=== PATIENT | male | born 1975 ===

== ENCOUNTER 2018-03-11 11:05 | Day surgery (SDC) | payer MEDICAID ==
[2018-03-06 06:47] VITALS: BMI 31.8
[2018-03-11 11:25] LABS: BASO # 0.03 K/mm3 (0.0-2.0); BASO % 0.6 % (0.0-3.0); EOS # 0.1 (0.0-0.7); EOS % 2.1 % (1.5-5.0); GRAN # 3.01 (1.4-6.5); GRAN % 56.9 % (50.0-68.0); HEMOGLOBIN 16.1 g/dL (14.0-18.0); LYMPH # 1.8 (1.2-3.4); LYMPH % 34.2 % (22.0-35.0); MEAN CELL VOLUME 81.1 fl (80.0-105.0); MEAN CORPUSCULAR HEMOGLOBIN 29.3 pg (25.0-35.0); MEAN CORPUSCULAR HGB CONC 36.1 g/dl (31.0-37.0); MONO # 0.3 (0.1-0.6); MONO % 6.2 % (1.0-6.0); RBC 5.5 10^6/uL (3.5-6.1); RED CELL DISTRIBUTION WIDTH 13.2 % (11.5-14.5); WHITE BLOOD COUNT 5.3 10^3/ul (4.5-11.0)
[2018-03-11 11:34] LABS: BLOOD UREA NITROGEN 13 mg/dL (7-21); GFR AFRICAN-AMERICAN > 60; GFR NON-AFRICAN AMERICAN > 60
[2018-03-11 11:35] LABS: INR 1.08 (0.93-1.08); PARTIAL THROMBOPLASTIN TIME 29.7 Seconds (25.1-36.5); PROTHROMBIN TIME 12.4 SECONDS (9.4-12.5)
[2018-03-11] MEDS ORDERED: Midazolam 2 MG/2 ML VIAL ONE (15:48)
[2018-03-11] MEDS ORDERED: Lidocaine 1% Inj (20ml) ONE (16:50)
[2018-03-11] MEDS ORDERED: Oxycodone/Acetaminophen 5/325 mg Tab PO PRN (17:02)
[2018-03-11] MEDS ORDERED: Sodium Chloride 0.45% 1,000 ML IV SCH (17:15)
[2018-03-11 18:02] VITALS: RESP 18; TEMP 98.3; O2SAT 94
[2018-03-11 18:19] VITALS: BP 123/84; PULSE 81
--- NOTE | 2018-03-11 19:28 | US ---
PROCEDURE: Ultrasound-guided right thyroid fine needle aspiration biopsy. CLINICAL HISTORY: Previous left thyroidectomy for goiter. 2.1 cm dominant right hypoechoic nodule. Evaluate for malignancy. PHYSICIAN(S): Neftali Sagastume M.D. TECHNIQUE: The relative risks and indications for the procedure were explained to the patient and consent obtained. The patient was placed supine on the stretcher with the neck extended and preliminary sonography of the thyroid performed. This reveal well-defined 2.1 cm hypoechoic nodule in the right 5. The left gland is been removed. The neck was prepped and draped in the usual sterile fashion. Conscious sedation and monitoring were provided throughout the procedure by a nurse. 1% Xylocaine was used to anesthetize the skin and soft tissues at the access site. Three passes with a 22-gauge needle were performed under ultrasound guidance for fine needle aspiration of the 2.1 cm hypoechoic nodule in the right thyroid. The slides were reviewed by pathology and deemed adequate. The patient tolerated the procedure well. IMPRESSION: 1. Ultrasound guided fine needle aspiration of a 2.1 cm hypoechoicnodule in the right thyroid.
== END 2018-03-11 18:50 | disposition home or self-care (01) ==
LOC: SDS 11:05
PROVIDERS: ATTEND Radiology Vascular & Interventional Radiology
DX: E04.1 Nontoxic single thyroid nodule (principal); I10 Essential (primary) hypertension
CPT/HCPCS: 10022; 36415; 76942; 80048; 85025; 85610; 85730; 88173; 88305; 99152; 99153; J2250; J2405; J3010; J7030